=== PATIENT | male | born 2000 | race African-American/Black ===

== ENCOUNTER 2019-02-25 20:18 | Emergency (ER) | payer OTHER ==
[~2019-02-25] VITALS: Ht 188 cm; Wt 101.8 kg
[2019-02-25 20:24] VITALS: BP 123/57; PULSE 103
[2019-02-25 21:10] LABS: STREP SCREEN NEGATIVE
[2019-02-25] MEDS ORDERED: AMOXICILLIN 50500 MG PO (21:30)
[2019-02-25 21:51] VITALS: TEMP 100.2
== END 2019-02-25 21:51 | disposition home or self-care (01) ==
LOC: COL.ER 20:18
PROVIDERS: Emergency Medicine
DX: J02.9 Acute pharyngitis, unspecified (principal)